=== PATIENT | female | born 1980 | race Caucasian/White ===

== ENCOUNTER 2017-01-23 04:13 | Inpatient (IN) | payer BC ==
[2017-01-22] MEDS: IBUPROFEN 600 MG TABLET PO SCH (23:50)
[~2017-01-23] VITALS: Ht 165.1 cm; Wt 91.2 kg
[2017-01-23] MEDS ORDERED: OXYTOCIN/NORMAL SALINE 1,000 ML IV SCH ×2 (04:33→11:40)
[2017-01-23] MEDS ORDERED: NALBUPHINE HCL 10 MG/ML AMP IVP PRN (04:45)
[2017-01-23] MEDS ORDERED: TERBUTALINE SULFATE 1 MG/ML VIAL SUBCUT ONE (04:45)
[2017-01-23] MEDS: LR 1,000 ML IV SCH ×3 (05:07→07:15)
[2017-01-23 05:35] LABS: BASOPHILS # (AUTO) 0.1 K/uL (0.0-0.2); BASOPHILS % (AUTO) 0.6 % (0.0-2.0); EOSINOPHILS # (AUTO) 0.1 K/uL (0.0-0.4); EOSINOPHILS % (AUTO) 0.4 % (0.0-4.0); HEMATOCRIT 33.9 % (36-48); HEMOGLOBIN 11.4 g/dL (12.0-16.0); LYMPHOCYTES # (AUTO) 2.7 K/uL (1.0-5.5); LYMPHOCYTES % (AUTO) 12.6 % (20.5-51.5); MEAN CORPUSCULAR HEMOGLOBIN 31 pg (27-31); MEAN CORPUSCULAR HGB CONC 34 % (32-36); MEAN CORPUSCULAR VOLUME 94 fL (79.0-98.0); MONOCYTES # (AUTO) 1.1 K/uL (0.0-1.0); MONOCYTES % (AUTO) 5.2 % (1.7-9.3); NEUTROPHILS # (AUTO) 17.2 K/uL (1.8-7.7); NEUTROPHILS % (AUTO) 81.2 % (40.0-70.0); PLATELET COUNT (AUTO) 308 K/uL (130-430); RED BLOOD CELL COUNT(AUTO) 3.63 MIL/uL (4.2-6.2); RED CELL DISTRIBUTION WIDTH 12.4 % (9.0-15.0); WHITE BLOOD COUNT (AUTO) 21.2 K/uL (4.8-10.8)
[2017-01-23 05:41] VITALS: BP_SYST 103
[2017-01-23] MEDS ORDERED: fentaNYL CITRATE/PF 100 MCG/2 ML AMP ONE (06:09)
[2017-01-23] MEDS ORDERED: FENT2mCg/mL-ROPIVA0.2%/NS EPID 150 ML EP ONE (06:10)
[2017-01-23] MEDS ORDERED: LR 500 ML IV ONE (06:50)
[2017-01-23] MEDS ORDERED: fentaNYL CITRATE/PF 100 MCG/2 ML AMP EP ONE (07:00)
[2017-01-23] MEDS ORDERED: ePHEDrine sulfate 50 MG/ML VIAL IVP PRN (07:00)
[2017-01-23] MEDS ORDERED: FENT2mCg/mL-ROPIVA0.2%/NS EPID 150 ML EP SCH (07:00)
[2017-01-23] MEDS ORDERED: OXYTOCIN/NORMAL SALINE 1,000 ML IV ONE (11:40)
[2017-01-23] MEDS ORDERED: DOCUSATE SODIUM 100 MG CAPSULE PO PRN (11:45)
[2017-01-23] MEDS ORDERED: OXYCODONE/ACETAMINOPHEN 5-325 TABLET PO PRN ×2 (11:45)
[2017-01-23] MEDS ORDERED: HYDROCORTISONE 0.5%, 28.35 GM TOPICAL CREAM TP PRN (11:45)
[2017-01-23] MEDS ORDERED: METHYLERGONOVINE MALEATE 0.2 MG TABLET PO PRN (11:45)
[2017-01-23] MEDS ORDERED: LANOLIN 7 GM OINT. TP PRN (11:45)
[2017-01-23] MEDS ORDERED: ANUSOL 1 EA SUPP.RECT (PREPARATION H) RC PRN (11:45)
[2017-01-23] MEDS ORDERED: HYDROcodone/ACETAMIN 5-325 MG TAB (NORCO/ VICODIN) PO PRN (11:45)
[2017-01-23] MEDS ORDERED: GLYCERIN/WITCH HAZEL (TUCKS PADS) TP PRN (11:45)
[2017-01-23] MEDS ORDERED: SENNOSIDES/DOCUSATE SODIUM 1 TAB TABLET(SENOKOT-S) PO PRN (11:45)
[2017-01-23] MEDS ORDERED: RHO(D) IMMUNE GLOBULIN/MALTOSE 1500 UNITS/1.3 ML (WINHRO) IM PRN (11:45)
[2017-01-23] MEDS ORDERED: DERMOPLAST SPRAY TP PRN (11:45)
[2017-01-23] MEDS ORDERED: MEASLES,MUMPS&RUBELLA VACC/PF 12500 UNIT/0.5 ML VIAL SUBQ PRN (11:45)
[2017-01-23] MEDS: IBUPROFEN 600 MG TABLET PO SCH ×2 (17:53→23:54)
[2017-01-23] MEDS ORDERED: TEMAZEPAM 15 MG CAPSULE PO PRN (21:00)
[2017-01-24] MEDS: IBUPROFEN 600 MG TABLET PO SCH ×2 (06:02→12:27)
[2017-01-24 06:59] LABS: BASOPHILS % (AUTO) 0.1 % (0.0-2.0); EOSINOPHILS # (AUTO) 0.1 K/uL (0.0-0.4); EOSINOPHILS % (AUTO) 0.6 % (0.0-4.0); HEMOGLOBIN 10.5 g/dL (12.0-16.0); LYMPHOCYTES # (AUTO) 2.4 K/uL (1.0-5.5); LYMPHOCYTES % (AUTO) 11.3 % (20.5-51.5); MEAN CORPUSCULAR HEMOGLOBIN 31 pg (27-31); MEAN CORPUSCULAR HGB CONC 34 % (32-36); MEAN CORPUSCULAR VOLUME 93 fL (79.0-98.0); MONOCYTES # (AUTO) 1.4 K/uL (0.0-1.0); MONOCYTES % (AUTO) 6.5 % (1.7-9.3); NEUTROPHILS # (AUTO) 17.6 K/uL (1.8-7.7); NEUTROPHILS % (AUTO) 81.5 % (40.0-70.0); PLATELET COUNT (AUTO) 295 K/uL (130-430); RED BLOOD CELL COUNT(AUTO) 3.35 MIL/uL (4.2-6.2); RED CELL DISTRIBUTION WIDTH 12.6 % (9.0-15.0); WHITE BLOOD COUNT (AUTO) 21.5 K/uL (4.8-10.8)
[2017-01-24] MEDS ORDERED: ROPIVACAINE 40 MG/20 ML AMP EP ONE (10:04)
[2017-01-24] MEDS ORDERED: RHO(D) IMMUNE GLOBULIN/MALTOSE 1500 UNITS/1.3 ML (WINHRO) IM PRN (10:15)
== END 2017-01-24 17:41 | disposition home or self-care (01) | DRG 775 ==
LOC: SPU 04:13
PROVIDERS: ADMIT Specialist; ATTEND Specialist
PROC: 10E0XZZ Delivery of Products of Conception, External Approach (ICD-10-PCS; principal; 2017-01-23)
PROC: 0KQM0ZZ Repair Perineum Muscle, Open Approach (ICD-10-PCS; 2017-01-23)
PROC: 3E0R3CZ (ICD-10-PCS; 2017-01-23)
PROC: 00HU33Z Insertion of Infusion Device into Spinal Canal, Percutaneous Approach (ICD-10-PCS; 2017-01-23)
PROC: 3E0134Z Introduction of Serum, Toxoid and Vaccine into Subcutaneous Tissue, Percutaneous Approach (ICD-10-PCS; 2017-01-23)
PROC: 30233S1 Transfusion of Nonautologous Globulin into Peripheral Vein, Percutaneous Approach (ICD-10-PCS; 2017-01-24)
DX: O69.1XX0 Labor and delivery complicated by cord around neck, with compression, not applicable or unspecified (principal); O99.214 Obesity complicating childbirth; O09.523 Supervision of elderly multigravida, third trimester; O70.1 Second degree perineal laceration during delivery; Z3A.40 40 weeks gestation of pregnancy; Z37.0 Single live birth; Z23 Encounter for immunization
CPT/HCPCS: 36415; 81002-TC; 85025; 86592; 86870; 86886; 86900; 86901; J2590; J2790; J2795; J3010; J7120